=== PATIENT | female | born 1950 | race Caucasian/White ===

== ENCOUNTER 2025-07-18 06:15 | Observation (INO) | payer MEDICARE ==
[2025-07-18] MEDS ORDERED: Lidocaine 1% w/Epinephrine 1:200K 30 ML VIAL ONE (06:16)
[2025-07-18] MEDS ORDERED: Ondansetron PF 4 MG/2 ML Vial ONE (08:50)
[2025-07-18] MEDS ORDERED: SUGAMMADEX SODIUM 200 MG/2 ML VIAL ONE (08:50)
[2025-07-18] MEDS ORDERED: Rocuronium Bromide 10 MG/ML (10ML VIAL) ONE (08:50)
[2025-07-18] MEDS ORDERED: PROPOFOL 20 ML ONE ×2 (08:50→10:08)
[2025-07-18] MEDS ORDERED: Lidocaine 1% PF 5 ML VIAL ONE (08:51)
[2025-07-18] MEDS ORDERED: Ondansetron PF 4 MG/2 ML Vial IVP PRN (09:21)
[2025-07-18] MEDS ORDERED: SUCCINYLCHOLINE/SOD CL,ISO/PF 200 MG/10 ML SYRINGE FS ONE (09:37)
[2025-07-18 12:01] VITALS: BMI 59.1
[2025-07-18] MEDS: Calcium Carbonate 500 MG ChewTAB PO SCH (14:34)
[2025-07-18] MEDS: Acetaminophen 325 MG TAB PO PRN (14:39)
[2025-07-18] MEDS: D5 1/2 NS 1,000 ML IV SCH (19:10)
[2025-07-18] MEDS: Calcitriol 0.25 MCG CAP PO SCH (20:47)
[2025-07-19] MEDS: Acetaminophen/Codeine 30-300mg Tablet PO PRN
[2025-07-19 07:02] LABS: Calcium 9.9 mg/dL (7.8-10.44)
[2025-07-19] MEDS ORDERED: Spironolactone 25 MG TAB PO SCH (09:00)
[2025-07-19] MEDS ORDERED: Allopurinol 300 MG TAB PO SCH (09:00)
[2025-07-19] MEDS ORDERED: Pantoprazole 40 MG DR.TAB PO SCH (09:00)
[2025-07-19 11:54] VITALS: BP 135/63; TEMP 98.2
[2025-07-19] MEDS ORDERED: Rosuvastatin 10 MG TAB PO SCH (21:00)
== END 2025-07-19 09:10 | disposition home or self-care (01) ==
LOC: CSHSDC 06:15 → CSHICU 10:58
PROVIDERS: ADMIT Otolaryngology Plastic Surgery within the Head & Neck; ATTEND Otolaryngology Plastic Surgery within the Head & Neck
PROC: 0GTK0ZZ Resection of Thyroid Gland, Open Approach (ICD-10-PCS; principal; 2025-07-18)
DX: E04.2 Nontoxic multinodular goiter (principal); H90.3 Sensorineural hearing loss, bilateral; I10 Essential (primary) hypertension; K21.9 Gastro-esophageal reflux disease without esophagitis; J44.9 Chronic obstructive pulmonary disease, unspecified; E78.5 Hyperlipidemia, unspecified; E66.01 Morbid (severe) obesity due to excess calories; Z68.43 Body mass index [BMI] 50.0-59.9, adult; Z87.59 Personal history of other complications of pregnancy, childbirth and the puerperium; Z90.49 Acquired absence of other specified parts of digestive tract
CPT/HCPCS: 60240; 82310; 83970; 94760 ×2; 94762; J1100; J2405; J2704; J3010; 36415; 88307